=== PATIENT | female | born 1960 | race Caucasian/White ===

== ENCOUNTER → 2018-05-11 | Outpatient (CLI) | payer BC | LOC: MC.RAD 08:08 | DX: Z12.31 Encounter for screening mammogram for malignant neoplasm of breast (principal) ==

== ENCOUNTER → 2020-07-16 | Outpatient (CLI) | payer BC | LOC: MC.RAD 13:20 | DX: Z12.31 Encounter for screening mammogram for malignant neoplasm of breast (principal) ==

== ENCOUNTER → 2021-08-12 | Outpatient (CLI) | payer BC | LOC: MC.RAD 08:00 | DX: Z12.31 Encounter for screening mammogram for malignant neoplasm of breast (principal) ==

== ENCOUNTER → 2023-09-23 | Outpatient (CLI) | payer BC | LOC: COL.RAD 10:31 | DX: E01.0 Iodine-deficiency related diffuse (endemic) goiter (principal); Z83.49 Family history of other endocrine, nutritional and metabolic diseases ==

== ENCOUNTER → 2023-10-27 | Outpatient (CLI) | payer BC ==
[~2023-10-27] VITALS: Ht 170.2 cm; Wt 67.8 kg
[~2023-10-27] MED LIST: MOBIC15 MG PO
[2023-10-27 08:15] VITALS: BP 114/71; PULSE 77; TEMP 98.3
[2023-10-27 09:45] VITALS: BP 112/76; PULSE 65
== END ==
LOC: COL.RAD 07:53
DX: E04.1 Nontoxic single thyroid nodule (principal)

== ENCOUNTER → 2023-11-14 | Outpatient (CLI) | payer BC ==
[~2023-11-14] VITALS: Ht 170.2 cm; Wt 69.3 kg
[2023-11-14 14:14] VITALS: BP 131/79; PULSE 63; TEMP 97.1
[2023-11-14 15:25] VITALS: BP 127/83; PULSE 63
--- NOTE | 2023-11-14 15:52 | NUR ---
PATIENT HAS SUCCESSFULLY COMPLETED HER RECOVERY TIME. PATIENT GOT DRESSED BY HERSELF. PATIENT HAS ALL PERSONAL ITEMS. ESCORTED PATIENT OUT OF RAD HOLDING AREA. BANDAGE REMAINS CLEAN, DRY, AND INTACT AND PATIENT CONTINUES TO DENY PAIN. ALL NEEDS MET.
== END ==
LOC: COL.RAD 13:29
DX: E04.1 Nontoxic single thyroid nodule (principal)
CPT/HCPCS: 32106

== ENCOUNTER → 2023-11-17 | Outpatient (CLI) | payer BC | LOC: MC.RAD 08:03 | DX: Z12.31 Encounter for screening mammogram for malignant neoplasm of breast (principal) ==